=== PATIENT | male | born 1950 | race Caucasian/White ===

== ENCOUNTER → 2018-03-13 | Outpatient (CLI) | payer MEDICARE ==
[~2018-03-13] MED LIST: AMLO10TA2 PO; ASPI-496 PO; BENA5TAB2 PO; FLUO10CA13 PO; NIAC750T3 PO; TRAZ100T15 PO
[2018-03-13 14:43] LABS: BASOPHILS # (AUTO) 0.06 x10^3/uL (0-0.1); BASOPHILS % (AUTO) 1 % (0-1); EOSINOPHILS # (AUTO) 0.31 x10^3/uL (0-0.4); EOSINOPHILS % (AUTO) 3 % (1-7); LYMPHOCYTES # (AUTO) 2.22 x10^3/uL (1-3.4); LYMPHOCYTES % (AUTO) 24 % (22-44); MD NO; MEAN CORPUSCULAR HEMOGLOBIN 25.2 pg (27.5-34.5); MEAN CORPUSCULAR HGB CONC 32.7 g/dL (33.2-36.2); MEAN CORPUSCULAR VOLUME 77.1 fL (81-97); MEAN PLATELET VOLUME 8.1 fL (7.4-10.4); MONOCYTES # (AUTO) 0.84 x10^3/uL (0.2-0.8); MONOCYTES % (AUTO) 9 % (2-9); NEUTROPHILS % (AUTO) 64 % (42-75); PLATELET COUNT 266 x10^3/uL (130-400); RED BLOOD COUNT 5.93 x10^6/uL (4.38-5.82); RED CELL DISTRIBUTION WIDTH 14.6 % (9.4-14.8)
[2018-03-13 14:44] LABS: PROTHROMBIN TIME 10.4 Seconds (9.6-11.5)
[2018-03-13 14:45] LABS: ALANINE AMINOTRANSFERASE 35 U/L (12-78); ALBUMIN 3.6 g/dL (3.4-5.0); ANION GAP 6 mmol/L (5-15); CALCIUM 8.2 mg/dL (8.5-10.1); CHLORIDE 109 mmol/L (98-107); CREATININE 0.84 mg/dL (0.7-1.3)
[2018-03-13 14:47] LABS: ALKALINE PHOSPHATASE 103 U/L (45-117); BILIRUBIN,TOTAL 0.4 mg/dL (0.2-1.0); TOTAL PROTEIN 6.4 g/dL (6.4-8.2)
[2018-03-13 14:50] LABS: MICROSCOPIC NOT IND
[2018-03-13 15:03] LABS: CULTURE INDICATED? NO
== END | disposition home or self-care (01) ==
LOC: STAR 13:31
PROVIDERS: ATTEND Family Medicine
DX: Z01.818 Encounter for other preprocedural examination (principal); M47.12 Other spondylosis with myelopathy, cervical region
CPT/HCPCS: 36415; 71046; 80053; 81003; 85025; 85610; 85730; 93005

== ENCOUNTER 2018-03-25 05:19 | Inpatient (IN) | payer MEDICARE ==
[~2018-03-25] VITALS: Ht 177.8 cm; Wt 105.0 kg
[2018-03-25] MEDS ORDERED: LACTATED RINGERS 1,000 ML IV SCH (06:29)
[2018-03-25] MEDS ORDERED: BUPIVACAINE/PF-EPI 0.5% 1:200K ONE (06:42)
[2018-03-25] MEDS ORDERED: THROMBIN 5,000 UNIT VIAL TP ONE (06:43)
[2018-03-25] MEDS ORDERED: BACITRACIN 50,000 UNIT ONE (06:43)
[2018-03-25] MEDS ORDERED: TAMSULOSIN 0.4 MG CAP.ER.24H PO ONE (07:00)
[2018-03-25] MEDS ORDERED: GABAPENTIN 300 MG CAPSULE PO ONE (07:00)
[2018-03-25] MEDS ORDERED: SCOPOLAMINE PATCH, 1.5MG PATCH.TD72 TD ONE (07:00)
[2018-03-25] MEDS ORDERED: ACETAMINOPHEN 500 MG TABLET PO ONE (07:00)
[2018-03-25] MEDS ORDERED: METOCLOPRAMIDE 10MG TABLET PO ONE (07:00)
[2018-03-25] MEDS ORDERED: FAMOTIDINE 20 MG TABLET PO ONE (07:00)
[2018-03-25] MEDS ORDERED: MIDAZOLAM 1 MG/ML, 2ML ONE (07:10)
[2018-03-25] MEDS ORDERED: FENTANYL PF 100 MCG/2ML ONE (07:10)
[2018-03-25] MEDS ORDERED: KETAMINE 10 MG/ML, 20ML ONE (07:12)
[2018-03-25] MEDS ORDERED: SUFentanil 50 MCG/ML, 5ML ONE ×2 (07:12→07:29)
[2018-03-25] MEDS ORDERED: PROPOFOL 150 ML ONE (07:22)
[2018-03-25] MEDS ORDERED: SUFentanil 50 MCG/ML, 2ML ONE (07:28)
[2018-03-25] MEDS ORDERED: PHENYLEPHRINE 10 MG/ML ONE (07:40)
[2018-03-25] MEDS ORDERED: SUCCINYLCHOLINE 20 MG/ML, 10ML ONE (08:50)
[2018-03-25] MEDS ORDERED: DEXAMETHASONE 4 MG/ML, 1ML ONE ×2 (08:50)
[2018-03-25] MEDS ORDERED: PROPOFOL 10 MG/ML, 20ML ONE (08:50)
[2018-03-25] MEDS ORDERED: SODIUM CHLORIDE 0.9% PF 10ML ONE (08:50)
[2018-03-25] MEDS ORDERED: CEFAZOLIN 1,000 MG ONE ×2 (08:50)
[2018-03-25] MEDS ORDERED: LIDOCAINE-MPF 2% ,5ML ONE (08:50)
[2018-03-25] MEDS ORDERED: ROCURONIUM 10MG/ML,5ML ONE (08:50)
[2018-03-25] MEDS ORDERED: FENTANYL PF 100 MCG/2ML IV PRN (09:00)
[2018-03-25] MEDS ORDERED: MORPHINE SULFATE 4 MG/ML, 1ML IVPush PRN (09:00)
[2018-03-25] MEDS ORDERED: OXYcodone 5 MG/5 ML ORAL.SOL UDC PO PRN (09:00)
[2018-03-25] MEDS ORDERED: ALBUTEROL SULFATE 2.5 MG/3 ML NPPB PRN (09:00)
[2018-03-25] MEDS ORDERED: PROMETHAZINE 25 MG/ML, 1ML IV PRN (09:00)
[2018-03-25] MEDS ORDERED: DIAZEPAM 5 MG/ML, 2ML IVPush PRN (09:00)
[2018-03-25] MEDS ORDERED: ONDANSETRON 2MG/ML, 2ML ONE (10:49)
[2018-03-25] MEDS ORDERED: ONDANSETRON 2MG/ML, 2ML IVPush ONE (11:00)
[2018-03-25] MEDS ORDERED: TIZANIDINE 2MG TABLET PO PRN ×2 (11:00→12:30)
[2018-03-25] MEDS ORDERED: PROMETHAZINE 25 MG/ML, 1ML ONE (11:07)
[2018-03-25 11:50] VITALS: BP 109/74
[2018-03-25] MEDS ORDERED: HYDROcodone/APAP 10/325 MG TABLET PO PRN (12:30)
[2018-03-25] MEDS ORDERED: BISACODYL 10 MG SUPP PR PRN (12:30)
[2018-03-25] MEDS ORDERED: ONDANSETRON 2MG/ML, 2ML IV PRN (12:30)
[2018-03-25] MEDS ORDERED: MAGNESIUM HYDROXIDE 8%, 30ML UDC PO PRN (12:30)
[2018-03-25] MEDS ORDERED: DIPHENHYDRAMINE 50 MG/ML, 1ML IVPush PRN (12:30)
[2018-03-25] MEDS ORDERED: DIPHENHYDRAMINE 25 MG CAPSULE PO PRN (12:30)
[2018-03-25] MEDS: NS + 20MEQ KCL 1,000 ML IV SCH (12:57)
[2018-03-25] MEDS ORDERED: TRAZODONE 100MG TABLET PO PRN (13:00)
[2018-03-25 14:00] VITALS: BP 120/79
[2018-03-25] MEDS: CEFAZOLIN PMX 1GM/50ML 50 ML IVPB SCH (17:41)
[2018-03-25 19:36] VITALS: BP 124/70
[2018-03-25] MEDS ORDERED: HYDROcodone/APAP 5/325 TABLET PO PRN (20:00)
[2018-03-25] MEDS: OXYcodone/APAP 5/325MG TABLET PO PRN (20:59)
[2018-03-25 23:29] VITALS: BP 120/77
[2018-03-26] MEDS: CEFAZOLIN PMX 1GM/50ML 50 ML IVPB SCH (01:34)
[2018-03-26] MEDS: NS + 20MEQ KCL 1,000 ML IV SCH ×2 (01:35→07:46)
[2018-03-26] MEDS: OXYcodone/APAP 5/325MG TABLET PO PRN ×2 (02:41→07:46)
[2018-03-26 03:18] VITALS: BP 120/74
[2018-03-26] MEDS ORDERED: TIZA2TAB PO ×2 (07:55→09:14)
[2018-03-26] MEDS ORDERED: OXYC1TAB7 PO (07:55)
[2018-03-26 08:09] VITALS: BP 128/72
[2018-03-26] MEDS ORDERED: NIACIN 750 MG TABLET.ER PO SCH (09:00)
[2018-03-26] MEDS ORDERED: FLUOXETINE 10 MG CAP PO SCH (09:00)
[2018-03-26] MEDS ORDERED: AMLODIPINE 5 MG TABLET PO SCH (09:00)
[2018-03-26] MEDS ORDERED: BENAZEPRIL 5 MG TABLET PO SCH (09:00)
[2018-03-26] MEDS: NIACIN 250 MG CAPSULE.ER PO SCH ×2 (09:00→09:47)
[2018-03-26] MEDS ORDERED: SENNA/DOCUSATE TABLET PO SCH (09:00)
[2018-03-26] MEDS ORDERED: OXYC-302 PO (09:13)
[2018-03-26] MEDS ORDERED: BENAZEPRIL 20 MG TABLET ONE (09:45)
[2018-03-26 10:19] VITALS: BP 131/77
== END 2018-03-26 11:05 | disposition home or self-care (01) | DRG 472 ==
LOC: ORIP 05:19 → 4NOR 11:43 → DCLOUNGE 03-26 10:40
PROVIDERS: ADMIT Neurological Surgery; ATTEND Neurological Surgery
PROC: 0RB30ZZ Excision of Cervical Vertebral Disc, Open Approach (ICD-10-PCS; 2018-03-25)
PROC: 0RG20A0 Fusion of 2 or more Cervical Vertebral Joints with Interbody Fusion Device, Anterior Approach, Anterior Column, Open Approach (ICD-10-PCS; principal; 2018-03-25 07:30)
DX: M50.122 Cervical disc disorder at C5-C6 level with radiculopathy (principal); G95.20 Unspecified cord compression; M43.19 Spondylolisthesis, multiple sites in spine; Z87.891 Personal history of nicotine dependence; Z88.1 Allergy status to other antibiotic agents; Z79.899 Other long term (current) drug therapy
CPT/HCPCS: 36415; 72040; 86850; 86900; 95938; 95941; C1713; J0690; J1100; J2250; J2270; J2405; J2550; J2704; J3010; J3480; J3490; C1776; J0330; J2370; J7120